=== PATIENT | male | born 1950 | race Caucasian/White ===

== ENCOUNTER 2016-08-05 12:39 | Emergency (ER) | payer BC ==
[2016-08-05 13:12] VITALS: TEMP 98; BMI 23.3
--- NOTE | 2016-08-05 13:25 | PDOC ---
History of Present Illness - General Chief Complaint: Pain, Acute Stated Complaint: LEFT FLANK PAIN Time Seen by Provider: 08/05/16 12:53 - History of Present Illness Initial Comments: 08/05/16 14:16 Chief complaint: Flank pain History of present illness: Patient awoke this morning with left flank pain, severe, without radiation. No urinary tract symptoms including dysuria, frequency, urgency, hesitancy, or gross hematuria. The pain persisted and he saw his primary physician, who administered oral pain medication and did a sonogram. The patient has appointment out of these results. His pain subsided and he is pain-free at present Review of systems: As above. In addition, there is been no fever/chills, URI symptoms, sore throat, cough, chest pain, shortness of breath, abdominal pain, nausea, vomiting, diarrhea, visual or focal neurologic symptoms, unsteadiness of gait. The patient reports no trauma or exercise, normal food and fluid intake , and no perspiration or exposure to excessive heat which may lead to dehydration. Past medical history: Kidney stones in the past, last episode approximately 5 years ago requiring lithotripsy, however, this was on the right side. High blood pressure. Dyspepsia. Anxiety. Medications: BuSpar, Zantac, and Benicar Social/family history reviewed and noncontributory including no use of alcohol or nonprescription drugs, tobacco, or family history of kidney disease Physical exam: Patient is alert oriented 3 well-developed well-nourished in no acute distress. He is pain-free now. His cheerful and cooperative Afebrile, vital signs normal except for moderately elevated blood pressure. No pallor or icterus. PERRLA, fundi benign, ENT clear Neck supple without bruit mass or nodes Lungs clear with full breath sounds throughout bilaterally CV S1 and S2 normal without murmur rub or gallop pulses full and symmetric no JVD or edema Abdomen nondistended, bowel sounds normal. Soft without mass tenderness organomegaly. No appreciable CVAT. : Testes descended bilaterally, no masses or tenderness, no hernias, no enlarged inguinal nodes Skin clear, no rash, adequate turgor and what mucous membranes Extremities no CCE Neurological intact Gait stable and unimpaired Impression: Most likely this is a recurrent kidney stone with renal colic. Pain has resolved, but there has been no radiation to the left lower quadrant or inguinal area, which would be expected to occur with passage of the stone. UTI unlikely, other etiologies of the pain less likely would be musculoskeletal, pleurisy or pleural effusion, perforated ulcer, splenic infarct or hemorrhage. However, he is extremely unlikely given the patient's presentation. Plan: CBC, chemistries, urinalysis, urine culture, further observation and treatment as needed. Past History - Past Medical History Allergies/Adverse Reactions: Allergies Allergy/AdvReac Type Severity Reaction Status Date / Time No Known Allergies Allergy Verified 08/05/16 12:56 Home Medications: Ambulatory Orders Buspirone HCl [Buspar -] 20 mg PO BID 08/05/16 Levofloxacin [Levaquin] 500 mg PO DAILY #10 tablet 08/05/16 Olmesartan Medoxomil [Benicar -] 40 mg PO DAILY #20 tablet 08/05/16 Oxycodone HCl/Acetaminophen [Percocet 5-325 mg Tablet] 1 - 2 tab PO Q4H PRN #20 tablet MDD 8 08/05/16 Ranitidine [Zantac -] 150 mg PO BID 08/05/16 Tamsulosin HCl [Flomax] 0.4 mg PO DAILY #10 cap.er.24h 08/05/16 Anemia: No Asthma: No Cancer: No Cardiac Disorders: No CVA: No COPD: No CHF: No Dementia: No Diabetes: No GI Disorders: Yes (hx of ibs) Disorders: No HTN: Yes Hypercholesterolemia: No Liver Disease: No Seizures: No Thyroid Disease: No - Surgical History Abdominal Surgery: No Appendectomy: No Cardiac Surgery: No Cholecystectomy: No Lung Surgery: No Neurologic Surgery: No Orthopedic Surgery: Yes (bunionectomy left foot) - Immunization History Td Vaccination: Yes Immunization Up to Date: Yes - Psycho/Social/Smoking Cessation Hx Anxiety: No Suicidal Ideation: No Smoking Status: No Smoking History: Never smoked Years of Tobacco Use: 0 Number of Cigarettes Smoked Daily: 0 Cigars Per Day: 0 Hx Alcohol Use: No Drug/Substance Use Hx: No Substance Use Type: None Hx Substance Use Treatment: No ED Treatment Course - LABORATORY CBC & Chemistry Diagram: 08/05/16 13:28 08/05/16 13:25 Medical Decision Making - Medical Decision Making 08/05/16 16:34 Soon after presentation, the patient's pain returned. He was treated with Toradol Flomax and IV fluids, and the pain again resolved. Notable with a white blood count of 14,000+, and an elevated BUN/creatinine. On this basis, a CT was ordered without contrast. CT demonstrates a 4 x 3 mm distal left ureteral stone approximately 7 mm from the UV junction. There is [id number] hydronephrosis and perinephric stranding. IV antibiotics were administered. Dr. Sanabria was contacted by phone and we are awaiting his return call. 08/05/16 17:54 Phone consultation was obtained from urologist Dr. Sanabria. Patient's symptoms, hospital course, and laboratory results were discussed, specifically the elevated white count and hydronephrosis/perinephric stranding visible on CT. Recommendation was for 1 dose of IV Rocephin now, continuing on Levaquin. Monitoring temperature every 4 hours and return to ER if there is fever, chills , increased pain, or other sign of acute infection. Otherwise to be seen tomorrow in Dr. Sanabria's office. Patient was pain-free and fully ambulatory upon discharge with family to follow-up as directed. *DC/Admit/Observation/Transfer Diagnosis at time of Disposition: Renal colic on left side - Discharge Dispostion Disposition: HOME Condition at time of disposition: Improved Admit: No - Prescriptions Prescriptions: Olmesartan Medoxomil [Benicar -] 40 mg PO DAILY #20 tablet Tamsulosin HCl [Flomax] 0.4 mg PO DAILY #10 cap.er.24h Levofloxacin [Levaquin] 500 mg PO DAILY #10 tablet Oxycodone HCl/Acetaminophen [Percocet 5-325 mg Tablet] 1 - 2 tab PO Q4H PRN #20 tablet MDD 8 PRN Reason: Severe Pain - Referrals Referrals: Alfredo Lopez MD., MD [Staff Physician] - 24 hours - Patient Instructions Printed Discharge Instructions: Kidney Stones -- Adult Additional Instructions: Drink lots of fluids. Antibiotic and Flomax as directed. Began antibiotic pills first thing tomorrow morning. Pain medication as needed. Return to ER if pain recurs and is uncontrolled. Stop current blood pressure medication as directed, and begin newly prescribed medication without diuretic. Have your blood pressure monitored by your primary physician frequently, with first recheck within [address] Sanabria, urologist, has been contacted by phone. He should call his office either later today or tomorrow morning and arrange to be seen tomorrow. He should tell the office staff that Dr. Sanabria was contacted by the emergency room doctor and that Dr. Sanabria wanted the patient fit in his schedule tomorrow at the office.
[2016-08-05 13:36] LABS: URINE BILIRUBIN Negative (NEGATIVE); URINE BLOOD 3+ (NEGATIVE); URINE COLOR YELLOW; URINE GLUCOSE (UA) Negative (NEGATIVE); URINE KETONE Negative (NEGATIVE); URINE LEUK ESTERASE Negative (NEGATIVE); URINE NITRITE Negative (NEGATIVE); URINE PROTEIN 1+ (NEGATIVE); URINE UROBILINOGEN 0.2 E.U/dl (0.2-1.0)
[2016-08-05 13:37] LABS: URINE APPEARANCE CLOUDY
[2016-08-05 13:40] LABS: URINE RBC 30-50 /hpf (0-3)
[2016-08-05 13:41] LABS: URINE WBC 0-3 (3-5)
[2016-08-05 13:46] LABS: URINE BACTERIA MODERATE /hpf (NEGATIVE); URINE MUCUS FEW
[2016-08-05 13:57] LABS: ALBUMIN 4.5 g/dl (3.5-5.0); ALK PHOS 57 U/L (32-92); ANION GAP 4 (8-16); BILIRUBIN,TOTAL 0.8 mg/dl (0.2-1.0); CALCIUM 10.3 mg/dl (8.4-10.2); CO2 27 mmol/L (22-28); CREATININE 1.4 mg/dl (0.6-1.3); GLUCOSE,RANDOM 127 mg/dl (74-106); SGOT/AST 21 U/L (10-42); SGPT/ALT 20 U/L (10-40); TOT PROT 7.7 g/dl (6.4-8.3)
[2016-08-05] MEDS ORDERED: KETOROLAC TROMETHAMINE 30 MG/1 ML VIAL IVPUSH ONE (14:00)
[2016-08-05] MEDS ORDERED: TAMSULOSIN HCL 0.4 MG CAP.ER.24H (FP) PO ONE (14:00)
[2016-08-05] MEDS ORDERED: KETOROLAC TROMETHAMINE 30 MG/1 ML VIAL ONE (14:10)
[2016-08-05] MEDS ORDERED: TAMSULOSIN HCL 0.4 MG CAP.ER.24H (FP) ONE (14:15)
[2016-08-05] MEDS ORDERED: SODIUM CHLORIDE 1,000 ML IV STA (14:16)
[2016-08-05 14:22] LABS: BASOPHIL 0.3 % (0-2.0); EOSINOPHIL 0.1 % (0-4.5); MCH 29.1 pg (25.7-33.7); MCHC 34.3 g/dl (32.0-35.9); MEAN CELL VOLUME 84.6 fl (80-96); MEAN PLT VOLUME 8.8 fl (7.5-11.1); NEUTROPHILS 90.1 % (42.8-82.8); PLATELET COUNT 229 K/MM3 (134-434); RDW 12.9 % (11.9-15.9); WHITE BLOOD COUNT 14.9 K/mm3 (4.0-10.0)
[2016-08-05 15:47] VITALS: PULSE 64
[2016-08-05] MEDS ORDERED: CEFTRIAXONE 1 GM in DEXTROSE 5%-WATER - 100 ML IVPB ONE (16:55)
[2016-08-05] MEDS ORDERED: cefTRIAXone SODIUM 1 GM VIAL ONE (16:58)
[2016-08-05 17:46] VITALS: BP 156/96
== END 2016-08-05 17:45 | disposition home or self-care (01) ==
LOC: FER 12:39
PROC: 3E03329 Introduction of Other Anti-infective into Peripheral Vein, Percutaneous Approach (ICD-10-PCS; principal; 2016-08-05)
PROC: 3E0333Z Introduction of Anti-inflammatory into Peripheral Vein, Percutaneous Approach (ICD-10-PCS; 2016-08-05)
PROC: 3E0337Z Introduction of Electrolytic and Water Balance Substance into Peripheral Vein, Percutaneous Approach (ICD-10-PCS; 2016-08-05)
DX: N23 Unspecified renal colic (principal); Z87.442 Personal history of urinary calculi; I10 Essential (primary) hypertension; F41.9 Anxiety disorder, unspecified
CPT/HCPCS: 36415; 74176; 80053; 81003; 81015; 85025; 87086; 99283-25

== ENCOUNTER 2023-10-20 18:16 | Day surgery (SDC) | payer BC ==
[2023-10-20 19:14] LABS: HEMATOCRIT 50.2 % (35.4-49); HEMOGLOBIN 16.2 G/dL (11.7-16.9); MCH 28.1 pg (25.7-33.7); MCHC 32.3 g/dl (32.0-35.9); MEAN PLT VOLUME 8.2 fl (7.5-11.1); PLATELET COUNT 227.2 10^3/uL (134-434); RBC 5.77 10^6/uL (4.00-5.60); RDW 14.4 % (11.9-15.9)
[2023-10-20 19:25] LABS: WHITE BLOOD COUNT 19.5 10^3/uL (4.0-10.8)
[2023-10-20 19:27] LABS: ALBUMIN 4.6 g/dl (3.4-5.0); BILIRUBIN,TOTAL 0.7 mg/dl (0.2-1); CALCIUM 10.2 mg/dl (8.5-10.1); CREATININE 1.4 mg/dl (0.6-1.3); MAGNESIUM 1.9 mg/dL (1.8-2.4); POTASSIUM 3.8 mmol/L (3.5-5.1); TOT PROT 7.6 g/dl (6.4-8.2)
[2023-10-20] MEDS: SODIUM CHLORIDE 1,000 ML IV ONE (19:50)
[2023-10-20] MEDS ORDERED: ONDANSETRON 4 MG/2 ML VIAL ONE (21:24)
[2023-10-20] MEDS: ONDANSETRON 4 MG/2 ML VIAL IVPB ONE (21:27)
[2023-10-20] MEDS: morphine CARPU-JECT 2 MG/1 ML DISP.SYRIN IVPUSH ONE (21:31)
[2023-10-20] MEDS: SODIUM CHLORIDE 1,000 ML IV SCH (21:31)
[2023-10-20] MEDS ORDERED: PIPERACILLIN/TAZOBACTAM 4.5 GM VIAL IVPB ONE (21:55)
[2023-10-20] MEDS: PIPERACILLIN/TAZOB 4.5 GM 4.5 GM in DEXTROSE 5%-WATER 100 ML IVPB ONE (22:09)
[2023-10-20 22:54] LABS: INR 1.05 (0.83-1.09); PROTHROMBIN TIME (PATIENT) 11.9 SEC (9.7-13.0)
[2023-10-20] MEDS ORDERED: DOCUSATE SODIUM 100 MG CAPSULE (FP) PO PRN (23:49)
[2023-10-20] MEDS ORDERED: morphine SULFATE 4 MG/ML VIAL IVPUSH PRN (23:49)
[2023-10-21 01:42] VITALS: BMI 25.9
[2023-10-21] MEDS ORDERED: ONDANSETRON 4 MG/2 ML VIAL IVPUSH PRN ×3 (03:30→21:01)
[2023-10-21] MEDS: PIPERACILLIN/TAZOB 4.5 GM 4.5 GM in DEXTROSE 5%-WATER 100 ML IVPB SCH (03:40)
[2023-10-21] MEDS: DEXTROSE 5%-NORMAL SALINE 1,000 ML IV SCH (03:41)
[2023-10-21] MEDS: ACETAMINOPHEN 1000 MG/100 ML BAG IVPB PRN (06:19)
[2023-10-21] MEDS: DEXTROSE 5%-0.45% SALINE 1,000 ML IV SCH (08:20)
[2023-10-21 08:49] LABS: CALCIUM 8.9 mg/dl (8.5-10.1); CREATININE 1.6 mg/dl (0.6-1.3)
[2023-10-21] MEDS: amLODIPine BESYLATE 10 MG TABLET (FP) PO SCH (09:13)
[2023-10-21] MEDS: FAMOTIDINE 20 MG TABLET PO SCH (09:13)
[2023-10-21] MEDS ORDERED: amLODIPine BESYLATE 10 MG TABLET (FP) PO SCH (10:00)
[2023-10-21] MEDS ORDERED: HYDROCHLOROTHIAZIDE 25 MG TABLET (FP) PO SCH (10:00)
[2023-10-21] MEDS ORDERED: SUCCINYLCHOLINE CHLORIDE 200 MG/10 ML SYRINGE ONE (10:08)
[2023-10-21] MEDS ORDERED: PROPOFOL 20 ML ONE (10:08)
[2023-10-21] MEDS ORDERED: MIDAZOLAM HCL 2 MG/2 ML SINGLE DOSE VIAL ONE (10:08)
[2023-10-21] MEDS ORDERED: ROCURONIUM BROMIDE 50 MG/5 ML SYRINGE ONE (10:09)
[2023-10-21] MEDS ORDERED: BUPIVACAINE HCL/PF 2.5 MG/ML - 30 ML VIAL IJ ONE (10:20)
[2023-10-21] MEDS: SODIUM CHLORIDE 1,000 ML IV STA (10:46)
[2023-10-21] MEDS: BUPIVACAINE HCL/PF 0.25% (2.5MG/ML) 10 ML VIAL IJ ONE (11:03)
[2023-10-21] MEDS ORDERED: ONDANSETRON 4 MG/2 ML VIAL ONE (11:17)
[2023-10-21] MEDS ORDERED: DEXAMETHASONE SOD PHOSPHATE 4 MG/1 ML VIAL ONE (11:17)
[2023-10-21 11:58] LABS: BASO % 0.2 % (0-2.0); EOS % 0.1 % (0-4.5); HEMATOCRIT 39.6 % (35.4-49); HEMOGLOBIN 13.5 GM/dL (11.7-16.9); LYMPH % 6.9 % (8-40); MCH 29.2 pg (25.7-33.7); MCHC 34.2 g/dl (32.0-35.9); MEAN CELL VOLUME 85.6 fl (80-96); MEAN PLT VOLUME 8.3 fl (7.5-11.1); MONO % 11.3 % (3.8-10.2); NEUT % 81.5 % (42.8-82.8); PLATELET COUNT 176 10^3/uL (134-434); RBC 4.63 M/mm3 (4.00-5.60); RDW 13.6 % (11.9-15.9)
[2023-10-21] MEDS ORDERED: FENTANYL CITRATE/PF 50 MCG/ML VIAL ONE (12:38)
[2023-10-21] MEDS ORDERED: ACETAMINOPHEN INJECTION 100 ML IVPB ONE (12:39)
[2023-10-21] MEDS: LACTATED RINGERS SOLUTION 1,000 ML IV SCH (14:23)
[2023-10-21 14:31] VITALS: RESP 18
[2023-10-21] MEDS: PIPERACILLIN/TAZOB 4.5 GM 4.5 GM in DEXTROSE 5%-WATER 100 ML IVPB ONE (15:37)
[2023-10-21] MEDS ORDERED: HYDROmorphone HCl 2 MG/ML VIAL IVPB PRN (21:01)
[2023-10-21] MEDS ORDERED: oxyCODONE HCL 5 MG TABLET PO PRN (21:01)
[2023-10-21] MEDS: ACETAMINOPHEN 1000 MG/100 ML BAG IVPB SCH (23:45)
[2023-10-22] MEDS ORDERED: PIPERACILLIN/TAZOB 4.5 GM 4.5 GM in DEXTROSE 5%-WATER 100 ML IVPB SCH (03:00)
[2023-10-22] MEDS: CEFAZOLIN 1 GM in DEXTROSE 5%-WATER - 50 ML IVPB SCH (03:08)
[2023-10-22] MEDS: LACTATED RINGERS SOLUTION 1,000 ML IV SCH (03:10)
[2023-10-22 08:37] LABS: CREATININE 1.4 mg/dl (0.6-1.3); MAGNESIUM 1.9 mg/dL (1.8-2.4); PHOSPHOROUS 2.5 (2.5-4.9); POTASSIUM 4.2 mmol/L (3.5-5.1)
[2023-10-22 09:15] LABS: BASO % 0.2 % (0-2.0); HEMATOCRIT 36.2 % (35.4-49); HEMOGLOBIN 12.6 GM/dL (11.7-16.9); LYMPH % 7.7 % (8-40); MCH 29.6 pg (25.7-33.7); MCHC 34.8 g/dl (32.0-35.9); MEAN PLT VOLUME 8.3 fl (7.5-11.1); MONO % 7.4 % (3.8-10.2); NEUT % 84.7 % (42.8-82.8); PLATELET COUNT 160 10^3/uL (134-434); RBC 4.26 M/mm3 (4.00-5.60); RDW 13.5 % (11.9-15.9); WHITE BLOOD COUNT 13.2 K/mm3 (4.0-10.0)
[2023-10-22] MEDS: FAMOTIDINE 20 MG TABLET PO SCH (09:15)
[2023-10-22] MEDS: ENOXAPARIN NA (PORCINE) 40 MG/0.4 ML DISP.SYRIN SQ SCH (09:15)
[2023-10-22 10:09] VITALS: BP 118/58; PULSE 85; TEMP 98.4
[2023-10-22] MEDS ORDERED: amLODIPine BESYLATE 10 MG TABLET (FP) PO SCH (22:00)
== END 2023-10-22 13:39 | disposition home or self-care (01) ==
LOC: FER 18:16 → FM/S 23:56 → INTOOBSV 23:56 → UNDOADMOB 23:56 → FASUSAT 10-21 11:21 → FM/S 10-21 11:22 → FASUSAT 10-22 13:39
PROVIDERS: ATTEND Internal Medicine
PROC: 0DTJ4ZZ Resection of Appendix, Percutaneous Endoscopic Approach (ICD-10-PCS; principal; 2023-10-21 11:03)
DX: K35.33 Acute appendicitis with perforation, localized peritonitis, and gangrene, with abscess (principal)
CPT/HCPCS: 36415; 71045-TC-FY; 74177-TC; 80048; 80053; 81003; 81015; 83690; 83735; 84100; 85025; 85027; 85610; 85730; 86850; 86900; 86901; 87040; 87070; 87075; 87076; 87086; 87186; 87205; 88304-TC; 93005; 94760; 99285-25; J0131; Q9967